=== PATIENT | male | born 1955 | race Hispanic/Latino ===

== ENCOUNTER 2024-12-19 12:03 | Emergency (ER) | payer MEDICARE ==
[~2024-12-19] VITALS: Ht 170.2 cm; Wt 83.2 kg
[2024-12-19] MEDS ORDERED: KETOROLAC TROMETHAMINE 30 MG/ML VIAL IV STA (12:20)
[2024-12-19] MEDS ORDERED: IOPAMIDOL 370 MG/ML 100 ML INFUS..BTL INJ ONE (12:34)
[2024-12-19] MEDS: FAMOTIDINE 20 MG/2 ML VIAL IV STA (13:04)
[2024-12-19] MEDS: SODIUM CHLORIDE 0.9% 1000ML 1,000 ML IV ONE (13:04)
[2024-12-19] MEDS: MAGNESIUM/ALUMINUM/SIMETHICONE 30 ML UDC PO ONE (13:04)
[2024-12-19] MEDS: Morphine 4mg INJECTION 4 MG/ML INJ IV ONE (13:29)
[2024-12-19] MEDS ORDERED: ONDANSETRON ODT4 MG PO (14:50)
[2024-12-19 15:00] VITALS: PULSE 67; RESP 16; TEMP 98.4; O2SAT 96
== END 2024-12-19 15:00 | disposition home or self-care (01) ==
LOC: FSED 12:15
DX: R10.13 Epigastric pain (principal); R10.32 Left lower quadrant pain; K52.9 Noninfective gastroenteritis and colitis, unspecified; I10 Essential (primary) hypertension; E78.5 Hyperlipidemia, unspecified
CPT/HCPCS: 74177; 80053; 81003; 85025; 99283; J1308; J2270; J7030; Q9967